=== PATIENT | female | born 1985 | race Caucasian/White ===

== ENCOUNTER 2023-06-12 13:03 | Observation (INO) | payer BC, SELFPAY ==
[2023-06-12 13:28] VITALS: BP 119/62; PULSE 71
[2023-06-12 13:46] VITALS: BP 110/57; PULSE 70
--- NOTE | 2023-06-12 13:58 | PC.NURSE ---
Fell at home missing last 3 steps. Fall was due to slip on steps. Landed on buttocks. States pain in coccyx rated as 3, Denies any other injuries.
--- NOTE | 2023-06-12 13:58 | PC.NURSE ---
SEE OBIX FOR MONITOR TRACING.
--- NOTE | 2023-06-12 18:14 | PC.NURSE ---
Spoke with Dr. Cleary, Will monitor for 4 hours.
--- NOTE | 2023-06-22 07:51 | PM.OBTRLD ---
OB - Triage/Final Diagnosis Visit Information Comments/Additional reasons for admission: I have assessed the risk for this patient, Yesi Barry, and determined that she would benefit from observation care. Final Diagnosis (1) Fall (on) (from) other stairs and steps, initial encounter: Code(s): W10.8XXA - Fall (on) (from) other stairs and steps, initial encounter Status: Acute
== END 2023-06-12 17:00 | disposition home or self-care (01) ==
PROVIDERS: Admitting Provider Obstetrics & Gynecology; PCP Family Medicine; Visit Provider Obstetrics & Gynecology
DX: Z04.3 Encounter for examination and observation following other accident (principal)
CPT/HCPCS: G0378; G0379

== ENCOUNTER 2023-09-01 14:59 | Outpatient (CLI) | payer BC, SELFPAY ==
[2023-09-01 16:05] LABS: Basophils Percent Auto 0.2 % (0.2-1.2); Eosinophils Absolute Auto 0.2 K/mm3 (0-0.3); Eosinophils Percent Auto 1.8 % (0-4.4); Hematocrit 39.6 % (37.0-47.0); Hemoglobin 12.7 g/dL (12.0-15.0); Immature Granulocyte Absolute 0.05 K/mm3 (0.00-0.031); Immature Granulocyte Percent A 0.4 % (0-0.5); Lymphocytes Absolute Auto 2.57 K/mm3 (0.9-3.2); Lymphocytes Percent Auto 22.8 % (18.3-44.2); Mean Corpuscular HGB Conc 32.1 g/dl (32-36); Mean Corpuscular Hemoglobin 27.7 pg (26-34); Mean Corpuscular Volume 86.3 fl (80-100); Mean Platelet Volume 11.4 fl (7.4-10.4); Monocytes Absolute Auto 0.5 K/mm3 (0.1-0.6); Monocytes Percent Auto 4.6 % (2.6-8.5); Neutrophils Absolute Auto 7.9 K/mm3 (1.3-6.7); Neutrophils Percent Auto 70.2 % (45.5-73.1); Platelet Count Result 298 k/mm3 (150-375); Red Blood Count 4.59 M/mm3 (4.2-5.4); White Blood Count 11.3 K/mm3 (4.5-10.0)
[2023-09-02 11:03] LABS: Rapid Plasma Reagin Non-Reactive (NonReactive)
== END 2023-09-01 15:00 | disposition home or self-care (01) ==
LOC: ANHLAB 15:05
PROVIDERS: PCP Family Medicine; Visit Provider Obstetrics & Gynecology
DX: Z34.93 Encounter for supervision of normal pregnancy, unspecified, third trimester (principal); Z3A.00 Weeks of gestation of pregnancy not specified
CPT/HCPCS: 36415; 85025; 86592; 86850; 86900; 86901

== ENCOUNTER 2023-09-03 05:36 | Inpatient (IN) | payer BC, SELFPAY ==
[2023-09-03] VITALS (56 sets, daily range): BP systolic 98–137; BP diastolic 39–82; PULSE 52–87; RESP 15–18; TEMP 36.1–36.8; O2SAT 97–100; BMI 48.5
--- NOTE | 2023-09-03 05:36 | LDADM ---
This patient, Yesi Velasco, was admitted to Labor/Delivery/Recovery 120 on 09/03/23 at 05:36. Plans for labor, pain management and were discussed with patient. Patient/family oriented to hospital policies and general routines including ID bracelet, bed and alarms, visiting hours, pain management, procedures, bathroom and other care routines, personal items, smoking policy, room service/diet and guest tray routines, infant security routines, and visiting hours. Patient/Family are encouraged to report perceived risks to care and to ask questions if they do not understand what they are told or what they should do. See OBIX for further documentation.
[2023-09-03] MEDS: LACTATED RINGERS 1,000 ML 125 ML IV CONT ×3 (06:14→09:27)
[2023-09-03 06:48] LABS: Glucose Point of Care 85 mg/dl (65-105)
--- NOTE | 2023-09-03 07:20 | WPDANESEPPF ---
Anes - Initial Pre Proc Eval Procedure: Operation Date: 09/03/23 07:30 Proposed Procedures p Repeat Section - Sung Baker MD Date/Time: 09/03/23 07:20 Surgeon: Sung Baker MD Pre Op Diagnosis: prior csection/PreAdmit Patient Data Age: 38 Gender: F Height: 1.68 m Weight: 136.5 kg Last Vital Signs Pulse 77 09/03/23 07:16 BP 120/70 09/03/23 07:16 O2 Del Method Room Air 09/03/23 06:34 Allergies Allergy/AdvReac Type Severity Reaction Status Date / Time Penicillins Allergy Hives Verified 08/19/23 14:30 shellfish derived Allergy Hives Verified 08/19/23 14:30 Sulfa (Sulfonamide Allergy Hives Verified 08/19/23 14:30 Antibiotics) Home Medications Medication Instructions Recorded Confirmed Type Classic 1 tab-cap PO DAILY 08/19/23 09/03/23 History aspirin 81 mg tablet 81 mg PO BID 08/19/23 09/03/23 History escitalopram oxalate 20 mg tablet 20 mg PO DAILY 08/19/23 09/03/23 History (Lexapro) insulin glargine 100 unit/mL 30 unit subcut BID 08/19/23 09/03/23 History subcutaneous cartridge labetalol 300 mg tablet 300 mg PO Q12H 08/19/23 09/03/23 History levothyroxine 75 mcg tablet 75 mcg PO DAILY 08/19/23 09/03/23 History (Synthroid) Laboratory Tests 09/03/23 06:31 POC Capillary Glucose 85 mg/dl (65-105) Patient hx anesthesia problems: none Family hx anesthesia problems: none Results Review: All pre-operative results and documents have been reviewed as part of the pre-operative evaluation. [facility] Family History Family History Other Acute myocardial infarction Cerebrovascular accident Congestive heart failure Diabetes mellitus Hypertension Hypothyroid Lung cancer Psoriasis Psoriatic arthritis Social History Social History Smoking status: Never smoker Second hand tobacco smoke exposure: No Substance use: never Lack of Transportation: No Lack of Food: Never True Current Housing: I Have Housing Concerned About Future Housing: No Difficulty Paying Gas/Electric Bills: No Difficulty Paying for Meds: No Currently Unemployed: No Education: Master's Degree or Higher Difficulty w/ Childcare or Family Care: No Spiritual care concerns: No Anes - Eval Final PreProcedure Day of Procedure 09/03/23 07:20 Patient weight: morbidly obese Heart: regular rate and rhythm Lungs: clear to auscultation Airway: Mallampati scale class III Neurological: alert and oriented Last oral intake: >/= 8 hours ASA classification: III Emergent: no Anesthetic plan: proceed Anesthesia type and monitoring: regional spinal and standard monitoring Results Review: All pre-operative results and documents have been reviewed as part of the pre-operative evaluation. Informed Consent: The patient's anesthetic plan and its attendant risks and benefits were discussed with the patient/family/POA. Questions were solicited and answers provided to the satisfaction of the patient/family/POA.
--- NOTE | 2023-09-03 08:04 | PM.IMHP ---
H&P: HPI History of Present Illness Date/Time: 09/03/23 08:04 Chief Complaint: Term Narrative: 38-year-old multipara at term with previous . Presents to repeat she has no complaints. She knows there are risks to the surgery. She understands injuries may occur that result in hospitalization, more surgery, and severe illness. She understands risk of hemorrhage infection. She denies any nausea, vomiting, fever, chills. She denies any chest pain or shortness of breath. She denies any contractions or loss of fluid. She denies any vaginal bleeding. Review of Systems Review of Systems: All systems reviewed & are unremarkable except as noted in HPI and below Constitutional: Constitutional: Denies chills, Denies fatigue, Denies fever(s) and Denies weakness Eyes: Eyes: Denies blurry vision, Denies change in vision, Denies loss of peripheral vision, Denies loss of vision, Denies other visual disturbances and Denies eye pain ENT: Denies vertigo, Denies dizziness, Denies hearing loss, Denies mouth pain, Denies nasal obstruction, Denies neck mass and Denies neck pain Cardiovascular: Cardiovascular: Denies chest pain, Denies diaphoresis, Denies syncope, Denies leg edema and Denies dyspnea Respiratory: Respiratory: Denies chest congestion, Denies cough, Denies hemoptysis, Denies dyspnea and Denies wheezing Gastrointestinal: Gastrointestinal: Denies abdominal pain, Denies constipation, Denies diarrhea, Denies nausea and Denies vomiting Genitourinary: Genitourinary: Denies hematuria, Denies change in libido, Denies nocturia, Denies genital lesions, Denies flank pain and Denies urinary urgency Musculoskeletal: Musculoskeletal: Denies abnormal gait, Denies back pain, Denies myalgias, Denies arthralgias, Denies joint swelling, Denies muscle weakness and Denies neck pain Integumentary/Breasts: Skin/Breast: Denies swelling, Denies breast pain, Denies breast mass, Denies dry skin, Denies nipple discharge, Denies unusual bruising and Denies jaundice Neurologic: Denies Neuro-related abnormal movements, Denies Abnormal speech present, Denies abnormal gait, Denies behavioral changes, Denies confusion, Denies vertigo, Denies dizziness, Denies syncope, Denies loss of vision, Denies memory loss, Denies convulsions and Denies weakness Psychiatric: Psychiatric: Denies abnormal sleep pattern, Denies behavioral changes, Denies change in libido, Denies confusion, Denies depression, Denies anhedonia and Denies memory loss Endocrine: Endocrine: Reports no additional endocrine complaints, Denies change in libido and Denies fatigue Hematologic/Lymphatic: Hematologic/Lymphatic: Reports no additional hematologic/lymphatic complaints Allergic/Immunologic: Allergic/Immunologic: Reports no additional allergic/immunologic complaints and Denies wheezing PMFSH Family History Family History Other Acute myocardial infarction Cerebrovascular accident Congestive heart failure Diabetes mellitus Hypertension Hypothyroid Lung cancer Psoriasis Psoriatic arthritis Social History Social History Smoking status: Never smoker Second hand tobacco smoke exposure: No Substance use: never Lack of Transportation: No Lack of Food: Never True Current Housing: I Have Housing Concerned About Future Housing: No Difficulty Paying Gas/Electric Bills: No Difficulty Paying for Meds: No Currently Unemployed: No Education: Master's Degree or Higher Difficulty w/ Childcare or Family Care: No Spiritual care concerns: No Meds Home Medications and Allergies Home Medications Medication Instructions Recorded Confirmed Type Classic 1 tab-cap PO DAILY 08/19/23 09/03/23 History aspirin 81 mg tablet 81 mg PO BID 08/19/23 09/03/23 History escitalopram oxalate 20 mg tablet 20 mg PO DAILY 08/19/23 09/03/23 Hi
[2023-09-03] MEDS: ceFAZolin 3 GM/D5W 100 ML 100 ML IVPB (08:05)
[2023-09-03] MEDS: KETOROLAC 30 MG/ML VIAL (*BKC) 15 MG IV PUSH (09:17)
--- NOTE | 2023-09-03 09:20 | W.PM.PROC2 ---
Procedure Note - Detailed Date of Procedure 09/03/23 Pre-op Diagnosis prior csection Post-op Diagnosis Same Procedure Performed Low-transverse section Surgeon Sung Baker MD Anesthesia Spinal Findings Normal gestational maternal anatomy, average size , normal Apgars. Description of Procedure The patient was taken the operating room. She was prepped and draped in dorsal supine position with a leftward tilt. This was done after spinal anesthetic was applied. A low-transverse skin incision was made and carried down till of the fascia with the knife. The fascial incision was made with the knife. The fascial incision was extended laterally with Martinez scissors. The fascia was tented upward superiorly and inferiorly the rectus muscles were dissected off bluntly. The rectus muscles were the midline. The preperitoneal fat and peritoneum were dissected open bluntly at the superior aspect of the rectus muscles. The peritoneal incision was extended superior and inferior with good position of bladder. The uterine incision was made with a scalpel down to the level of the amniotic cavity. The amniotic cavity was entered bluntly. The was delivered. The cord was clamped and cut and the infant was handed off to waiting pediatric staff. Cord bloods were obtained. The placenta was removed manually. The uterus was exteriorized. The uterus was cleared of all clots, debris and membranes. The uterus was closed in 0 Vicryl running lock fashion. An imbricating over a was placed along the incision line as well. The uterus was returned to the abdomen. The gutters were cleared of all clots and debris. The fascia was closed with 0 Vicryl running fashion. The subcutaneous tissue was irrigated pinpoint bleeders were cauterized. The skin was closed with subcuticular absorbable sumaya. The skin incision line was covered with glue. The patient tolerated the procedure well. She has taken recovery room in stable condition. Sponge lap and needle counts were correct x2. Estimated Blood Loss 625 Complications No immediate complications Condition Stable Disposition PACU
--- NOTE | 2023-09-03 11:52 | PC.NURSE ---
Patient transferred to post room #282 via (stretcher ). Support person present. Oriented to unit, room, information board, rooming in, admission packet and security measures. Patient verbalizes understanding.
[2023-09-03] MEDS: LORATADINE 10 MG TABLET PO (13:09)
--- NOTE | 2023-09-03 14:26 | PC.NURSE ---
1330 Mother was just admitted to the floor post surgery. Introductions were made, then consulted with patient to assess needs related to . Mother led the conversation with her?plans to feed?her and the?experience so far. Mother works well with her infant with encouragement and education. Encouraged understanding of the benefits of skin to skin (demonstrating unwrapping and placing upright on her chest), stimulating with massage touch, changing positions to encourage wakefulness, how to watch for early feeding cues, responsive feeding, feeding on demand (aiming for 8-12 times in 24 hours, about every 2-3 hours), milk production, building/maintaining a milk supply, duration of feeding, signs of adequate intake/output and how to record on the feeding sheet. Reviewed positioning and ear, shoulder, hip alignment, supporting the breast to facilitate a deep latch, asymmetrical latch (off-center), leading with the chin with a big, open, wide gape and body close to mother. Infant latched optimally to the both breasts in football position. Education given to mother of how to visualize suck/swallow ratios and listen for drinking at the breast. Infant was able to maintain latch for brief period of time without discomfort to mother. Nipple care reviewed with optimal latch and good positioning. Reminding mother of comfort measures of healing with a warm and wet washcloth to rinse breast, then leave open to air-dry as needed. Reviewed good handwashing when or touching the breast/nipples to prevent infection. Resources used to facilitate learning were used with the [visual handouts/mom and baby guide]. Mother voiced understanding of skin to skin, stimulating with massage touch, responsive feedings, hand expressed colostrum, talking to infant to encourage if it has been 2 -2.5 hours since the start of the last , to call if does not latch, or if there is discomfort with . Resources provided for inpatient/outpatient with business card, feeding sheet and the mom/baby guide. Parents voiced understanding of information, demonstrated learning and will call if there is a request for assistance. Reported to primary RN.
--- NOTE | 2023-09-03 14:29 | PC.NURSE ---
0915 Introductions were made, then consulted with patient to assess needs related to . Mother led the conversation with her?plans to feed?her and the?experience so far. Mother states that she wishes to pump only and provide baby with breast milk via the bottle. Resources provided for inpatient and outpatient services with the feeding sheet, mom/baby guide and name written on the white board. Mother voiced understanding of information and will call if there is a request for assistance. Reported to the primary RN.
[2023-09-03] MEDS: DOCUSATE SODIUM 100 MG CAPSULE PO (15:53)
[2023-09-03] MEDS: DEXTROSE 5%/0.45% SOD CHL 1,000 ML 125 ML IV CONT (17:31)
[2023-09-04 00:20] VITALS: BP 143/78; PULSE 86; RESP 18; TEMP 36.6; O2SAT 99
[2023-09-04 00:30] VITALS: BP 143/78; PULSE 86; RESP 18; TEMP 36.8; O2SAT 99
[2023-09-04 04:20] VITALS: BP 111/63; PULSE 76; RESP 16; TEMP 36.8; O2SAT 98
[2023-09-04 04:55] LABS: Basophils Percent Auto 0.2 % (0.2-1.2); Eosinophils Absolute Auto 0.1 K/mm3 (0-0.3); Eosinophils Percent Auto 1.1 % (0-4.4); Hematocrit 30.5 % (37.0-47.0); Hemoglobin 9.9 g/dL (12.0-15.0); Immature Granulocyte Absolute 0.04 K/mm3 (0.00-0.031); Immature Granulocyte Percent A 0.3 % (0-0.5); Lymphocytes Absolute Auto 3.45 K/mm3 (0.9-3.2); Lymphocytes Percent Auto 28.5 % (18.3-44.2); Mean Corpuscular HGB Conc 32.5 g/dl (32-36); Mean Corpuscular Hemoglobin 27.8 pg (26-34); Mean Corpuscular Volume 85.7 fl (80-100); Mean Platelet Volume 11.6 fl (7.4-10.4); Monocytes Absolute Auto 0.5 K/mm3 (0.1-0.6); Monocytes Percent Auto 4.2 % (2.6-8.5); Neutrophils Percent Auto 65.7 % (45.5-73.1); Platelet Count Result 231 k/mm3 (150-375); Red Blood Count 3.56 M/mm3 (4.2-5.4); Red Cell Distribution Width 13.6 % (11.5-14.5); White Blood Count 12.1 K/mm3 (4.5-10.0)
[2023-09-04] MEDS: LEVOTHYROXINE SODIUM 75 MCG TABLET PO (07:45)
[2023-09-04] MEDS: ASPIRIN 81 MG CHEWABLE TABLET PO (07:45)
[2023-09-04] MEDS: HYDROcodone/acetaminophen (*CRX) 5-325 MG TABLET 1 TAB PO (07:45)
[2023-09-04] MEDS: POLYSACCHARIDE IRON COMPLEX 150 MG CAPSULE PO ×2 (07:45→18:44)
[2023-09-04] MEDS: MULTIVIT/MIN/PREN/FOL AC/IRON TABLET 1 TAB PO (07:45)
[2023-09-04] MEDS: IBUPROFEN 600 MG TABLET PO ×2 (07:45→21:49)
[2023-09-04] MEDS: SIMETHICONE 80 MG TAB.CHEW PO (07:45)
[2023-09-04] MEDS: DOCUSATE SODIUM 100 MG CAPSULE PO ×2 (07:45→18:44)
--- NOTE | 2023-09-04 07:56 | PM.OBPNVD ---
OB - PN: Subj Subjective Date/time seen: 09/04/23 07:56 Interval history: pp day 1 repeat section doing well flatus present OB - PN: Obj Data Labs 09/04/23 04:14 Labs: Laboratory Results - last 24 hr 09/04/23 04:14 WBC 12.1 H RBC 3.56 L Hgb 9.9 L Hct 30.5 L MCV 85.7 MCH 27.8 MCHC 32.5 RDW 13.6 Plt Count 231 MPV 11.6 H Immature Gran % (Auto) 0.3 Neut % (Auto) 65.7 Lymph % (Auto) 28.5 [place] % (Auto) 4.2 Eos % (Auto) 1.1 Baso % (Auto) 0.2 Lymph # (Auto) 3.45 H [place] # (Auto) 0.5 Eos # (Auto) 0.1 Baso # (Auto) 0.0 Abs Immat Gran (auto) 0.04 H Absolute Neuts (auto) 8.0 H Absolute Nucleated RBC 0.0 Nucleated RBC % 0.0 OB - PN A/P Plan day: 1 Plan: routine care Time Spent With Patient Time: Total time spent is greater than 50% in coordination of care (as documented) at patient's floor/unit and/or counseling patient: Review of Systems Review of Systems: All systems reviewed & are unremarkable except as noted in HPI and below Exam Const: General: cooperative, healthy appearing and comfortable Resp: Effort & Inspection: normal respiratory effort Cardio: Rate: regular rate GI: Other: incision CDI Skin: General skin exam: normal color Neuro: General: patient oriented x3
[2023-09-04 08:20] VITALS: BP 137/73; PULSE 82; RESP 16; TEMP 37.1; O2SAT 99
--- NOTE | 2023-09-04 08:44 | WPDANLDPN2 ---
Anes-Prog Note L&D Date/Time: 09/04/23 08:44 Comfortable throughout: section Neuraxial method: spinal Epidural/Spinal procedure site: clean & non-tender Neuro status: Neuro function grossly intact. Cardiovascular status: normal Respiratory status: normal Airway patency: baseline Mental status: baseline Post-Op hydration status: normal Vital Signs: Last Vital Signs Temp 36.8 C 09/04/23 04:20 Pulse 76 09/04/23 04:20 Resp 16 09/04/23 04:20 BP 111/63 09/04/23 04:20 Pulse Ox 98 09/04/23 04:20 O2 Del Method Room Air 09/04/23 00:30 Pain score (VAS): 3/10 I/O: Intake & Output 09/03/23 09/04/23 09/04/23 23:59 07:59 15:59 Intake Total 700 Output Total 1000 Balance -300 Post-procedural complaints: pruritis Patient feedback: Patient satisfied with anesthetic care. Other findings: itching relieved with loratadine
--- NOTE | 2023-09-04 08:45 | WPDANLDNPN2 ---
Anes-Prog Note L&D-Neuraxial Date/Time: 09/04/23 08:45 Neuraxial medications: intrathecal PF morphine Opiod-related complaints: pruritis Patient feedback: Patient satisfied with post-operative pain management. Comments: itching relieved with loratadine
[2023-09-04] MEDS: LABETALOL HCL 100 MG TABLET 200 MG PO ×2 (10:45→21:50)
[2023-09-04] MEDS: ESCITALOPRAM OXALATE 10 MG TABLET 20 MG PO (10:45)
[2023-09-04] MEDS: HYDROcodone/acetaminophen (*CRX) 10-325 MG TABLET 1 TAB PO ×2 (18:44→21:49)
[2023-09-04 19:45] VITALS: BP 132/78; PULSE 89; RESP 18; TEMP 36.8; O2SAT 99
[2023-09-04 21:50] VITALS: PULSE 89
[2023-09-05] MEDS: DOCUSATE SODIUM 100 MG CAPSULE PO (07:17)
[2023-09-05] MEDS: MULTIVIT/MIN/PREN/FOL AC/IRON TABLET 1 TAB PO (07:17)
[2023-09-05] MEDS: LEVOTHYROXINE SODIUM 75 MCG TABLET PO (07:17)
[2023-09-05] MEDS: LORATADINE 10 MG TABLET PO (07:18)
[2023-09-05] MEDS: ESCITALOPRAM OXALATE 10 MG TABLET 20 MG PO (07:18)
[2023-09-05] MEDS: POLYSACCHARIDE IRON COMPLEX 150 MG CAPSULE PO (07:19)
[2023-09-05 07:23] VITALS: BP 132/86; PULSE 69; RESP 18; TEMP 36.7; O2SAT 100
--- NOTE | 2023-09-05 07:55 | P.PNOB_ITS ---
OB - PN: Subj Subjective Date/time seen: 09/05/23 07:55 Interval history: pp day 1 repeat section doing well flatus present Patient comments: no complaints, pain well controlled, incisional pain, tolerat ing diet and flatus present OB - PN: Obj Data Labs 09/04/23 04:14 OB - PN A/P Plan day: 2 Plan: routine care Comments: POD#2 LTCS - no problems, Time Spent With Patient Time: Total time spent is greater than 50% in coordination of care (as documented) at patient's floor/unit and/or counseling patient: Exam Const: General: comfortable, no acute distress and alert Resp: Effort & Inspection: normal respiratory effort Auscultation: no crackles, no rales and no rhonchi Cardio: Rate: regular rate Heart sounds: no click, no murmurs and no rubs GI: Inspection: non-distended Auscultation: normal bowel sounds Other: Incision - CDI Extrem: General: normal to inspection, no pedal edema and no calf tenderness
--- NOTE | 2023-09-05 08:15 | PM.OBDSVD ---
DS: Admitting Diagnosis Discharge Date September 05, 2023 Admitting Diagnosis term DS: Discharge Diagnosis Discharge Diagnosis (1) delivery delivered: Code(s): O82 - Encounter for delivery without indication Status: Acute OB - DS: Summary OB Procedures : None OB Procedures Intrapartum: OB Procedures: : None Peripartum Data Procedures: Procedures Operation Date: 09/03/23 07:30 Actual Procedure Side Surgeon p Section Sung Baker MD Time Spent with Patient Time attestation: Total time spent providing and/or coordinating discharge services: Discharge Plan Discharge Attending physician on discharge: Sung Baker Discharging Clinician: Sung Baker Patient Disposition: Home, Self-Care Activity: pelvic rest Diet: regular Patient Instructions: Antibiotic Form Stand Alone Forms: General Discharge Information Follow-up/Referrals: Sung Baker MD [Physician] - Discharge Medications: New oxycodone-acetaminophen 5-325 mg tablet 1 tablet PO Q4H PRN (Reason: pain) Qty: 25 0RF Continued levothyroxine [Synthroid] 75 mcg Tablet 75 mcg PO DAILY aspirin 81 mg Tablet 81 mg PO BID labetalol 300 mg Tablet 300 mg PO Q12H escitalopram oxalate [Lexapro] 20 mg Tablet 20 mg PO DAILY Classic 1 tab-cap PO DAILY Discontinued Lantus U-100 Insulin 100 unit/mL Cartridge 30 unit SUBCUT BID Date of admission: 09/03/23 05:36 Primary Care Provider: Feliicty,Alberto Velez Admitting Provider: Sung Baker Attending physician on admission: Sung Baker Condition: Stable
[2023-09-05] MEDS: ASPIRIN 81 MG CHEWABLE TABLET PO (11:18)
[2023-09-05 11:20] VITALS: PULSE 70
[2023-09-05] MEDS: LABETALOL HCL 100 MG TABLET 200 MG PO (11:20)
[2023-09-07 14:59] VITALS: BP 131/90; PULSE 86; RESP 18; TEMP 37.4; O2SAT 99
== END 2023-09-05 12:56 | disposition home or self-care (01) | DRG 787 ==
LOC: ANHLDR 05:41 → ANHOB2 12:20
PROVIDERS: Admitting Provider Obstetrics & Gynecology; PCP Family Medicine; Visit Provider Obstetrics & Gynecology
PROC: 10D00Z1 Extraction of Products of Conception, Low, Open Approach (ICD-10-PCS; CPT 59514; principal; 2023-09-03 07:30)
DX: O34.211 Maternal care for low transverse scar from previous cesarean delivery (principal); O10.92 Unspecified pre-existing hypertension complicating childbirth; Z37.0 Single live birth; Z3A.38 38 weeks gestation of pregnancy; O24.429 Gestational diabetes mellitus in childbirth, unspecified control; O99.824 Streptococcus B carrier state complicating childbirth; O32.8XX0 Maternal care for other malpresentation of fetus, not applicable or unspecified
CPT/HCPCS: 36415; 82948; 85025; A9270; J0690; J1100; J1885; J2274; J2371; J2405; J2590; J7120